=== PATIENT | male | born 1980 | race Caucasian/White ===

== ENCOUNTER 2018-03-31 21:05 | Emergency (ER) | payer SELFPAY ==
[2018-03-31] MEDS ORDERED: Benzocaine/Butamben/Tetracain* SPRAY TOPICAL ONE (21:37)
[2018-03-31] MEDS ORDERED: Benzocaine/Butamben/Tetracain* SPRAY ONE (21:38)
[2018-03-31] MEDS ORDERED: Clindamycin CAP* 150 MG PO ONE (22:12)
[2018-03-31 22:35] VITALS: BP 136/88
--- NOTE | 2018-03-31 22:36 | ED ---
Throat Pain/Nasal Congestion - HPI Summary HPI Summary: Patient is a 37-year-old male who presents emergency department for dental pain and facial swelling 3 days. Associated symptoms of subjective fever. Denies nausea or vomiting. States that swelling reduced today with ice. Does not currently have a dentist. Symptoms are mild in severity. Eating and drinking makes symptoms worse. Nothing makes symptoms better. - History of Current Complaint Chief Complaint: EDDentalPain Time Seen by Provider: 03/31/18 21:21 Hx Obtained From: Patient - Allergies/Home Medications Allergies/Adverse Reactions: Allergies Allergy/AdvReac Type Severity Reaction Status Date / Time No Known Allergies Allergy Verified 03/31/18 21:15 PMH/Surg Hx/FS Hx/Imm Hx Previously Healthy: Yes Infectious Disease History: No Infectious Disease History: Denies: Traveled Outside the [place] in Last 30 Days - Social History Occupation: Unemployed Lives: Alone Alcohol Use: None Substance Use Type: Reports: None Smoking Status (MU): Heavy Every Day Tobacco Smoker Review of Systems Positive: Chills Positive: Dental Pain Negative: Vomiting, Nausea All Other Systems Reviewed And Are Negative: Yes Physical Exam Triage Information Reviewed: Yes Vital Signs On Initial Exam: Initial Vitals Temp Pulse Resp BP Pulse Ox 98.4 F 68 16 144/90 98 03/31/18 21:13 03/31/18 21:13 03/31/18 21:13 03/31/18 21:13 03/31/18 21:13 Vital Signs Reviewed: Yes Appearance: Positive: Well-Appearing - Pt. sitting up in bed in NAD. Skin: Positive: Warm, Dry Head/Face: Positive: Normal Head/Face Inspection Eyes: Positive: Normal, ELIAZAR ENT: Positive: Pharynx normal Dental: Positive: Other - Or dentition noted throughout. 0.5 cm area of fluctuance noted above the top left lateral incisor. Mild facial edema. No submandibular edema. No trismus. Neck: Positive: Supple, Nontender, No Lymphadenopathy Neurological: Positive: Normal, CN Intact II-III Psychiatric: Positive: Normal Procedures - Incision and Drainage Site: Dental abscess. Top left anterior gum. Anesthesia: Other - Hurricaine spray Instrument(s): Scalpel Diagnostics - Vital Signs Vital Signs Temp Pulse Resp BP Pulse Ox 03/31/18 21:13 98.4 F 68 16 144/90 98 - Laboratory Lab Statement: Any lab studies that have been ordered have been reviewed, and results considered in the medical decision making process. EENT Course/Dx - Course Course Of Treatment: Patient presenting to the ER for a dental abscess. He is well appearing and afebrile. I was able to incise and drain dental abscess, small amount of purulent matter expressed. Patient tolerated procedure well. Will place on clindamycin. He was given information for on-call dentist. Tylenol or Motrin for pain as directed. Advised to return to the ER for fever, increased swelling, vomiting. Patient understands this and. - Differential Diagnoses Differential Diagnoses: Periodontic Abscess, Periodontic Disease - Diagnoses Provider Diagnoses: Dental abscess Discharge - Sign-Out/Discharge Documenting (check all that apply): Discharge/Admit/Transfer - Discharge Plan Condition: Good Disposition: HOME Prescriptions: Clindamycin Cap(NF) [Clindamycin Cap 300 mg Cap(NF)] 300 mg PO Q6H 10 Days #40 cap Patient Education Materials: Dental Abscess (ED) Referrals: Tono Grossman MD [Doctor of Dental Medicine] - Non Staff,Doctor [Primary Care Provider] - Additional Instructions: Call Dr. Grossman' office tomorrow to schedule an appointment Take antibiotic as directed Tylenol or Motrin for pain as directed Return to ER for increased pain, swelling, fever or vomiting - Billing Disposition and Condition Condition: GOOD Disposition: HOME
== END 2018-03-31 22:34 | disposition home or self-care (01) ==
LOC: ED 21:05
DX: K04.7 Periapical abscess without sinus (principal); K08.89 Other specified disorders of teeth and supporting structures; F17.210 Nicotine dependence, cigarettes, uncomplicated
CPT/HCPCS: 99282; A9270-GY